=== PATIENT | female | born 1940 | race Caucasian/White ===

== ENCOUNTER 2017-11-11 17:02 | Inpatient (IN) | payer MEDICARE ==
[~2017-11-11] VITALS: Ht 149.9 cm; Wt 51.3 kg
[~2017-11-11 17:02] MED LIST: ALLOPURINOL 10100 M1 PO; CIPRO500 MG PO; COLACE100 MG PO; NORVASC10 MG PO; PROTONIX40 M1 PO; UNICOMPLEX M TA1 TA1 PO; VITAMIN B-12500 MCG PO
[2017-11-11 17:04] VITALS: BP 130/58
[2017-11-11] MEDS ORDERED: REMERON15 MG PO (17:12)
[2017-11-11] MEDS ORDERED: MIRALAX17 GM PO (17:13)
[2017-11-11] MEDS ORDERED: TYLENOL325 MG PO (17:13)
[2017-11-11 18:13] LABS: ABSOLUTE BASOPHILS 0.1 thou/uL (0.0-0.2); ABSOLUTE MONOCYTES 0.3 thou/uL (0.0-1.2); ABSOLUTE NEUTROPHILS 7.2 thou/uL (1.6-8.1); BASOPHILS 0.6 %; EOSINOPHILS 0.6 %; HEMATOCRIT 28.7 % (37.0-47.0); HEMOGLOBIN 9.5 gm/dL (12.0-15.0); LYMPHOCYTES 11.7 %; MCH 31.5 pg (26.0-34.0); MCHC 33.2 g/dL (28.0-37.0); MCV 94.7 fL (80.0-100.0); MONOCYTES 3.5 %; MPV 8.5 fl. (7.2-11.1); NUCLEATED RBCS 0 /100WBC; PLATELET COUNT* 487 thou/uL (150-400); POLYS 83.6 %; RBC 3.03 mil/uL (4.20-5.00); RDW-CV 14.2 % (10.5-14.5); WBC 8.6 thou/uL (4.0-11.0)
[2017-11-11 18:21] LABS: ANION GAP 12 mmol/L (7-16); BUN 24 mg/dL (7-18); CALCIUM 8.9 mg/dL (8.5-10.1); CHLORIDE 102 mmol/L (98-107); CO2 25 mmol/L (21-32); CREATININE 1.3 mg/dL (0.6-1.3); GLUCOSE 184 mg/dL (70-99); POTASSIUM 3.6 mmol/L (3.5-5.1); SODIUM 139 mmol/L (136-145)
[2017-11-11 18:32] LABS: ALBUMIN 2.6 g/dL (3.4-5.0); ALKALINE PHOSPHATASE 80 U/L (46-116); NT-PRO BRAIN NAT PEPTIDE 345 pg/mL (<300); SGOT 20 U/L (15-37); SGPT 21 U/L (30-65); TOTAL BILIRUBIN 0.2 mg/dL (<0.1-1.0); TOTAL PROTEIN 8.2 g/dL (6.4-8.2); TROPONIN-I LEVEL <0.06 ng/mL (<0.06)
[2017-11-11 19:19] LABS: URINE BILIRUBIN NEGATIVE (Negative); URINE BLOOD NEGATIVE (Negative); URINE CLARITY CLEAR; URINE COLOR YELLOW; URINE GLUCOSE-RANDOM NEGATIVE (Negative); URINE KETONES NEGATIVE (Negative); URINE LEUKOCYTES 1+ (Negative); URINE NITRITE POSITIVE (Negative); URINE PROTEIN 2+ (Negative); URINE UROBILINOGEN 0.2 E.U./dl (0.2-1.0)
[2017-11-11 20:04] LABS: SQUAMOUS 4-10 Moderate /LPF (0-3)
[2017-11-11 20:05] LABS: BACTERIA >30 Many /HPF (None Seen); URINE RBC None Seen /HPF (0-2)
[2017-11-11 20:06] LABS: CASTS None Seen /LPF (None Seen); CRYSTALS None Seen /LPF (None Seen); MUCUS None Seen strn/LPF (None Seen)
[2017-11-11 20:40] LABS: INFLUENZA A ANTIGEN None Detected (None Detect); INFLUENZA B ANTIGEN None Detected (None Detect)
--- NOTE | 2017-11-11 22:55 | NUR ---
UPON ARRIVAL TO ED, PATIENT WAS HOLLERING OUT BUT WAS UNABLE TO COMMUNICATE HER NEEDS. ONCE CHANGED INTO A GOWN AND BRIEF REMOVED, AND EXTRA BLANKETS APPLIED, PATIENT CALMED DOWN AND BEGAN RESTING WITH HER EYES CLOSED. TURNING Q2HR AND CHECKING ON HER SHE HAS BEEN RESTING AND HAD ONE SMALL SOFT BOWEL MOVEMENT. REPORT GIVEN TO ANASTASIYA
[2017-11-11 22:57] VITALS: BP 127/62
[2017-11-12 04:18] VITALS: BP 124/70
--- NOTE | 2017-11-12 06:36 | NUR ---
PT IS UNABLE TO BE TURNED. PT SCREAMS IN PAIN. PT WANTS TO BE LEFT ON HER RIGHT SIDE. PT IS STIFF AND CURRENLTY IN THE POSITION. PT IS ABLE TO ANSWER YES AND NO. PT HAS A HISTORY OF DEMENTIA
[2017-11-12 09:07] VITALS: BP 102/65
--- NOTE | 2017-11-12 11:47 | EKG ---
[place] [address] ELECTROCARDIOGRAM REPORT Name: TERESA BUCHANAN Room: [address] ADM IN [facility]#: [id number] Admission: 11/11/17 Attend Phys: Alfredo Saucedo MD Discharge: Date of : 38 Report #: [id number] THIS REPORT FOR: //name// [facility] ED Test Date: 2017-11-11 Test Time: 17:10:55 Pat Name: TERESA BUCHANAN Department: Room: [address] Gender: F Obstetrics Technician: UNKNOWN : 1940 Requested By: Elisa Gray Order Number: [id number] Lars MD: Adriano Morales Measurements Intervals [place] Rate: 91 P: 0 OR: 118 QRS: 46 QRSD: 87 T: 34 QT: 370 QTc: 456 Interpretive Statements Sinus rhythm Borderline short OR interval Artifact in lead(s) II,aVR,aVF,V1,V2,V6 Compared to ECG 02/11/2017 10:31:07 Atrial premature complex(es) no longer present Electronically Signed On 11-12-2017 11:46:48 WELT TREATER by Adriano Morales [email or web address] <ELECTRONICALLY SIGNED> By: Adriano Morales MD, FACC 11/12/17 1146 1710 1710 Adriano Morales MD, FAC /EPI
[2017-11-12 13:43] LABS: HEMOGLOBIN 8.3 gm/dL (12.0-15.0); NUCLEATED RBCS 0 /100WBC
[2017-11-12 13:46] LABS: HEMATOCRIT 24.8 % (37.0-47.0); MCH 31.5 pg (26.0-34.0); MCHC 33.5 g/dL (28.0-37.0); MCV 94.1 fL (80.0-100.0); MPV 7.8 fl. (7.2-11.1); RBC 2.63 mil/uL (4.20-5.00); WBC 7.7 thou/uL (4.0-11.0)
[2017-11-12 13:47] LABS: CALCIUM 8.4 mg/dL (8.5-10.1); PLATELET COUNT* 431 thou/uL (150-400); POTASSIUM 3.5 mmol/L (3.5-5.1)
[2017-11-12 14:20] LABS: ABSOLUTE EOSINOPHILS 0.1 thou/uL (0.0-0.7); ABSOLUTE LYMPHOCYTES 1.2 thou/uL (0.8-5.3); ABSOLUTE MONOCYTES 0.2 thou/uL (0.0-1.2); ABSOLUTE NEUTROPHILS 6.2 thou/uL (1.6-8.1); METAMYELOCYTES 1 %; PLATELET ESTIMATE INCREASED
[2017-11-12 14:21] LABS: ANISOCYTOSIS 1+
[2017-11-12 14:22] LABS: CLUMPED PLTS RARE; HYPOCHROMASIA 1+; LARGE PLATELETS FEW
--- NOTE | 2017-11-12 14:58 | NUR ---
UNABLE TO AROUSE PT. SHE IS SLEEPING SOUNDLY. NURSING SAID SHE HAS BEEN SLEEPY ALL DAY. CONTACTED FRIEND,QUINTEN, AT [phone]. SHE SAID PT.HAS BEEN LIKE THIS FOR ABOUT 2 WEEKS. 'SHE LIKES TO SLEEP' SHE ALSO FEELS SHE HAS ALOT OF BACK AND ARM PAIN. PT.HAS LIVED AT [facility] IN [place] FOR 8 MONTHS. DOES NOT AMBULATE. IS WC BOUND. LATELY SOMEONE HAS HAD TO FEED HER. SHE NEVER HAS A GOOD APPETITE. IS DEPENDENT ON CARES. QUINTEN SAID SHE IS HER DPOA. DOES NOT HAVE A COPY OF DPOA. NONE ON FILE IN MED.RECORDS. CM WILL CHECK WITH [facility] ON TUESDAY.
--- NOTE | 2017-11-12 18:10 | NUR ---
I ASSUMED CARE OF THE PATIENT AT 0700. SHE IS NOT WILLING TO HAVE CONVERSATION. HOURLY ROUNDING WAS COMPLETED AND PATIENT NEEDS WERE MET. PAIN WAS DENIED. BED IS IN THE LOW LOCKED POSITION AND CALL LIGHT IS IN REACH. PATIENT IS A FEEDER, BUT WILL BARELY EAT. SWALLOW EVALUATION WAS COMPLETED AND SHE PASSED. I BELIEVE HER RESPONSE TO PO MEDS AND MEALS ARE RELATED TO BEHAVIOR. SHE HAS HAD VISITIORS OFF AND ON DURING THE DAY. WE ARE TURNING HER EVERY TWO HOURS. BED RAILS ARE UP FOR SAFETY. THERE IS DEBATE OF WHETHER SHE SHOULD BE HAVING HOSPICE CONSULTED OR CONTINUE THERAPY BETWEEN THE [facility] AND THE FAMILY. SW WILL FOLLOW UP ON PAPERWORK FROM [facility] ON TUESDAY. WILL CONTINUE TO MONITOR.
[2017-11-12 20:00] VITALS: BP 117/47
[2017-11-13 04:07] LABS: ALBUMIN 2.1 g/dL (3.4-5.0); CALCIUM 8.6 mg/dL (8.5-10.1); CREATININE 0.9 mg/dL (0.6-1.3); POTASSIUM 3.3 mmol/L (3.5-5.1); TOTAL BILIRUBIN 0.2 mg/dL (<0.1-1.0); TOTAL PROTEIN 6.8 g/dL (6.4-8.2)
[2017-11-13 04:23] LABS: ABSOLUTE EOSINOPHILS 0.1 thou/uL (0.0-0.7); ABSOLUTE LYMPHOCYTES 1.2 thou/uL (0.8-5.3); ABSOLUTE MONOCYTES 0.4 thou/uL (0.0-1.2); ABSOLUTE NEUTROPHILS 6.3 thou/uL (1.6-8.1); BASOPHILS 0.5 %; HEMATOCRIT 24.8 % (37.0-47.0); HEMOGLOBIN 8.3 gm/dL (12.0-15.0); LYMPHOCYTES 14.5 %; MCH 31.6 pg (26.0-34.0); MCHC 33.4 g/dL (28.0-37.0); MCV 94.6 fL (80.0-100.0); MONOCYTES 4.8 %; MPV 8.2 fl. (7.2-11.1); NUCLEATED RBCS 0 /100WBC; PLATELET COUNT* 454 thou/uL (150-400); POLYS 79.2 %; RBC 2.62 mil/uL (4.20-5.00); RDW-CV 14.2 % (10.5-14.5)
--- NOTE | 2017-11-13 04:50 | NUR ---
THIS NURSE ASSUMED CARE OF PT 11/12/17 AT 1930, PT RESTS QUIETLY WITH EYES CLOSED, PT IS ARROUSABLE, PT ONLY RESPONDS TO QUESTIONS OCCASIONALLY WITH YES ANSWERS, PT STATES I DONT HAVE ANY PAIN ANYWHERE WHEN ASKED WHERE SHE HURTS, HOWEVER PT GRIMACES AND YELLS OUT WHEN TOUCHED OR TURNED, HEART RRR, NO EDEMA, LUNG SOUNDS CLEAR AND DIMINISHED AT BASES, ABD SOFT AND FLAT WITH POSITIVE BOWEL SOUNDS, MALAGON CATHETER INTACT TO DEPENDENT DRAINAGE WITH CLEAR YELLOW URINE, PT IS ABLE TO SWALLOW 1 PILL WITH APLESAUCE AND DRINK WATER FROM STRAW WITHOUT DIFFICULTY, IV TO LEFT AC REMAINS INTACT WITH FLUIDS DISCONTINUED, PT RESTING QUIETLY AT THIS TIME, BED IN LOWEST POSITION, CALL LIGHT WITHIN REACH, BED ALARM IS ON
[2017-11-13 08:05] VITALS: BP 122/58
[2017-11-13 16:28] VITALS: BP 138/56
--- NOTE | 2017-11-13 16:59 | NUR ---
ASSUMED CARE OF PATIENT AT 1630. PATIENT SLEEPING. NO APPARENT NEEDS AT THIS TIME. NURSING WILL CONTINUE TO MONITOR.
--- NOTE | 2017-11-13 18:12 | NUR ---
NO CHANGE IN PATIENT STATUS. REMAINS ASLEEP. RESPONDS TO PHYSICAL STIMULI BY YELLING. NO EVIDENCE OF NEEDS. NURSING WILL CONTINUE TO MONITOR.
[2017-11-13 20:29] VITALS: BP 145/72
[2017-11-14 04:17] LABS: ABSOLUTE BASOPHILS 0.1 thou/uL (0.0-0.2); ABSOLUTE EOSINOPHILS 0.1 thou/uL (0.0-0.7); ABSOLUTE MONOCYTES 0.2 thou/uL (0.0-1.2); ABSOLUTE NEUTROPHILS 5.3 thou/uL (1.6-8.1); BASOPHILS 2.1 %; EOSINOPHILS 0.8 %; HEMATOCRIT 24.8 % (37.0-47.0); HEMOGLOBIN 8.7 gm/dL (12.0-15.0); LYMPHOCYTES 14.5 %; MCH 31.6 pg (26.0-34.0); MCHC 35.2 g/dL (28.0-37.0); MCV 89.9 fL (80.0-100.0); MONOCYTES 3.4 %; MPV 7.3 fl. (7.2-11.1); NUCLEATED RBCS 0 /100WBC; PLATELET COUNT* 458 thou/uL (150-400); POLYS 79.2 %; RBC 2.76 mil/uL (4.20-5.00); RDW-CV 13.9 % (10.5-14.5); WBC 6.7 thou/uL (4.0-11.0)
[2017-11-14 04:30] LABS: CALCIUM 8.8 mg/dL (8.5-10.1); POTASSIUM 3.7 mmol/L (3.5-5.1)
--- NOTE | 2017-11-14 04:33 | NUR ---
PATIENT RESTING QUIETLY IN BED WITH EYES CLOSED ALL NIGHT. WILL RESPOND OCCASSIONALLY WITH YES ANSWERS RESTING QUIETLY IN BED ALL NIGHT WITH EYES CLOSED. WILL RESPOND OCCASSIONALLY WITH YES ANSWERS. DENIES PAIN OR NAUSEA WHEN ASKED BUT DOES MOAN WHEN MOVED. HAS FOLY CATHETER PATENT WITH CLEAR YELLOW. REPOSITIONED SEVERAL TIMES THROUGHOUT NIGHT. BED ALARM ON AND CALL LIGHT WITHIN REACH. DENIES PAIN OR NAUSEA WHEN ASKED BUT WILL YELL OUT WHEN MIVED
--- NOTE | 2017-11-14 08:19 | NUR ---
ORDER RECEIVED FOR "OT EVALUATION AND TREATMENT". COMPLETED CHART REVIEW. PER CASE MANAGEMENT, PT RESIDES AT [facility] IN [place]. PT IS NON-AMBULATORY AND DEPENDENT FOR ADL'S. PT NON APPROPRIATE FOR SKILLED OT SERVICES AT THIS TIME.
[2017-11-14 08:26] VITALS: BP 138/67
--- NOTE | 2017-11-14 11:52 | NUR ---
QUINTEN Silva, AT BEDSIDE. SHE WOULD LIKE TO SEE PT.COMFORTABLE. SHE THINKS PT.IS READY TO 'GO BE WITH HER MOM AND DADDY'. SHE SIGNED A DPOA AT 'S OFFICE 3 YRS AGO BUT HE IS NOW RETIRED AND HAVE NO WAY OF GETTING IT. SHE SAID SHE REALLY WOULD RATHER PT.'S BROTHER MAKE THE DECISIONS, BECAUSE SHE DOESN'T WNAT TO BE RESPONSIBLE. SHE SAID SHE THINKS BROTHER WANTS EVERYTHING DONE FOR HER. HE IS SUPPOSED TO BE IN TODAY.
[2017-11-14 15:31] VITALS: BP 113/48
--- NOTE | 2017-11-14 15:48 | NUR ---
PATIENTS BROTHER WOULD LIKE TO MEET WITH DR. BRO TOMORROW TO DISCUSS OPTIONS. NOTIFIED CASE MANAGEMENT WHO WILL HELP ARRANGE THE MEETING.
--- NOTE | 2017-11-14 16:25 | NUR ---
PATIENT SLEEPING ALL DAY. WILL ANSWER SOME QUESTIONS WITH THE WORD NO. REFUSED MEALS. REPOSITIONED EVERY [address] SKIN INTACT. HEELS ELEVATED ON PILLOW. VSS. PATIENTS FRIEND QUINTEN VISITED THIS AM AND PATIENTS BROTHER VISITED THIS AFTERNOON. THEY ARE UNABLE TO GET PATIENT TO EAT EITHER. FAMILY WOULD LIKE TO MEET WITH DR. BRO TOMORROW TO DISCUSS OPTIONS. BED ALARM SET. CALL LIGHT WITHIN REACH. WILL CONTINUE TO MONITOR.
--- NOTE | 2017-11-14 16:35 | NUR ---
SPOKE WITH ABOUT FAMILY MEETING. HE SAID WHENEVER BROTHER/FAMILY ARRIVES TOMORROW TO PAGE HIM AND HE WILL COME TO TALK WITH THEM. NOTIFIED BROTHER,RENITA AND AGRISCIENCE TEACHER,IVANNA,ON UNIT.
[2017-11-14 20:50] VITALS: BP 120/66
[2017-11-15 00:38] VITALS: BP 128/60
--- NOTE | 2017-11-15 04:53 | NUR ---
PATIENT SLEEPING ALL OF MY SHIFT EASY TO AROUSE, BUT QUICKLY FALLS GOES BACK TO SLEEP. TAKES MEDS CRUSHED IN APPLESAUCE, TAKES SEVERAL MINUTES TO GET PATIENT TO OPEN MOUTH THE TAKE MEDICATION. MALAGON TO DEPENDENT DRAINAGE. REPOSITONED EVERY TWO HOURS. SKIN INTACT. FREQUENT ROUNDS. NURSING WILL CONTINUE TO MONITOR.
[2017-11-15 08:15] VITALS: BP 118/62
--- NOTE | 2017-11-15 12:15 | NUR ---
PT.'S BROTHER,RENITA, HIS AND PT.'S S.O.HERE. HAD DISCUSSION WITH THEM ABOUT PLAN OF CARE-IF THEY WISH TO START HOSPICE CARE OR CONTINUE TREATING PT. IE:SENDING HER TO HOSPITAL EACH TIME SHE GETS DEHYDRATED /DECLINES IN MENTAL STATUS. AT THIS TIME THEY WISH TO CONTNUE TO TREATING PT.IS A LITTLE MORE ALERT AND WILL EAT PART OF A MEAL IF FED/DAY. THEY WILL TALK WITH AND G.FACILITY WHEN PT.RETURNS TO SEE IF HOSPICE IS SOMETHING THEY WANT TO DO. SAID PT.MAY BE READY FOR DISCHARGE IN 1-2 DAYS.
--- NOTE | 2017-11-15 16:41 | NUR ---
PATIENT REMAINS CONFUSED, SLEEPING ALL SHIFT. WILL AROUSE AND ANSWER SOME YES/NO QUESTIONS. ATE VERY SMALL AMOUNTS OF MEALS TODAY. IV SALINE LOCKED. IV ABX INFUSED THIS AM. REPOSTIONED EVERY [address] FAMILY MET WITH DR. BRO TO DISCUSS OPTIONS. SCD'S IN PLACE. TYLENOL SUPPOSITORY THIS AM FOR LOW GRADE FEVER. NO BM. MALAGON IN PLACE WITH HERMANN URINE. BED ALARM SET. WILL CONTINUE TO MONITOR.
[2017-11-15 20:10] VITALS: BP 140/71
[2017-11-16 04:37] LABS: HEMATOCRIT 27.2 % (37.0-47.0); HEMOGLOBIN 9.3 gm/dL (12.0-15.0); MCH 31.7 pg (26.0-34.0); MCV 93.2 fL (80.0-100.0); MPV 7.8 fl. (7.2-11.1); RBC 2.92 mil/uL (4.20-5.00); RDW-CV 14.2 % (10.5-14.5); WBC 6.3 thou/uL (4.0-11.0)
[2017-11-16 04:38] VITALS: BP 118/66
--- NOTE | 2017-11-16 04:56 | NUR ---
PATIENT REMAINS CONFUSED AND DROWSY. VITALS STABLE. RA. AFEBRILE DURING MY SHIFT. MALAGON TO DEPENDENT DRAINAGE. REPOSITIONED EVERY TWO HOURS. TAKES PILLS CRUSHED IN APPLESAUCE. NO BOWEL MOVEMENT DURING MY SHIFT. FREQUENT ROUNDS. BED ALARM IN USE. NURSING WILL CONTINUE TO MONITOR.
--- NOTE | 2017-11-16 07:27 | EEG ---
[address] [address] EEG STUDY REPORT Name: TERESA BUCHANAN Room: [address] IN .R.#: [id number] Admission: 11/11/17 Attend Phys: Alfredo Saucedo MD Discharge: Date of : 38 Report #: [id number] THIS REPORT FOR: //name// CC: Alfredo Sol DATE OF SERVICE: 11/13/2017 This patient is being evaluated for altered mental status. EEG was done by placing the electrodes by standard 10/20 system of electrode placement. Both referential and sequential montages were used for recording. Background activity in this patient's EEG is about 6-7 Hz and 30 microvolt. Photic stimulation was unremarkable. It is not possible to tell when the patient is awake and sleep. Throughout the record, no active epileptiform activity was noticed. IMPRESSION: This is an abnormal EEG. It is a nonspecific finding which can occur with encephalopathy, effect of psychotropic medication, dementia, etc. No active epileptiform activity was noticed during this record. Thank you very much for this referral. <ELECTRONICALLY SIGNED> By: Bhaskar Brown MD 11/16/17 0727 0623 [id number] Brown MD /nt
--- NOTE | 2017-11-16 07:27 | CON ---
[address] [address] CONSULTATION Name: TERESA BUCHANAN Room: [address] IN .R.#: [id number] Admission: 11/11/17 Attend Phys: Alfredo Saucedo MD Discharge: Date of : 38 Report #: [id number] THIS REPORT FOR: //name// CC: Alfredo Sol DATE OF SERVICE: 11/13/2017 HISTORY OF PRESENT ILLNESS: This is a 77-year-old female patient who is unable to provide any history at all. I do not have any family members and in the chart I can find only the number for a friend. The records indicate that she has not been doing well for 2 weeks. She has not been eating and drinking well and was apparently more confused than normal. To me she will not talk. REVIEW OF SYSTEMS: From the records. She has a history of Alzheimer disease. She has altered mental status. She has anemia. She has anorexia. She had large bowel movements. This is what I can get from the record. I did carry out 14-point review of systems, the best I can carry out and this is what I can get. She is on some psychiatric medications, so I suspect she has some psychiatric problem. PAST MEDICAL HISTORY: Positive for dementia. FAMILY HISTORY: Unavailable. SOCIAL HISTORY: She lives in a shelter. PHYSICAL EXAMINATION: Indicate she will not talk to me. She will not say a single word. She will not follow any commands, making the examination almost impossible. I tried to do cranial nerve examination 2-12 but she will not keep her eyes shut and will not cooperate. She has no meningeal sign. Cardiac examination hemodynamic stability. She has no edema, cyanosis or jaundice. She is moderately built individual. I do not know whether she can hear or see well. Blood pressure is 122/58, respiration is 20, pulse is 79, temperature is 98.4. LABORATORY DATA: White count is normal at 8.0, potassium is 3.3. CT scan is unremarkable. IMPRESSION: This patient most likely has dementia. She has some superimposed encephalopathy. I do not know how aggressive to be in this patient, but will suggest conservative treatment. RECOMMENDATIONS: 1. She already had a CT scan of the head. 2. [place] [address] CONSULTATION Name: TERESA BUCHANAN Room: [address] IN [facility]#: [id number] Admission: 11/11/17 Attend Phys: Alfredo Saucedo MD Discharge: Date of : 38 Report #: [id number] 3. She had a TSH recently and vitamin B12 recently. Vitamin B12 was low. I will just go ahead and repeat both. Until the family wants otherwise, I will suggest very conservative treatment. Thank you very much for this referral and if you have any question, please feel free to contact me. <ELECTRONICALLY SIGNED> By: Bhaskar Brown MD 11/16/17 0727 1023 2105Bhaskar Brown MD /nt
[2017-11-16 08:34] VITALS: BP 127/63
[2017-11-16 14:29] VITALS: BP 127/63
--- NOTE | 2017-11-16 15:54 | NUR ---
PT.HAS DISCHARGE ORDERS TO RETURN TO [facility]. SHE WILL BE SKILLED. NOTIFIED [facility]. FAXED HER ORDERS, H&P,CONSULTS AND TODAY'S PROGRESS NOTE. WILL GO BY AMBULANCE. ARRANGED AMBULANCE FOR 1614. NOTIFIED SAlissaEFRAIN ON PHONE AND BROTHER,RENITA ON PHONE. HAD TO LEAVE FOR RENITA. CHART COPIED TO GO WITH PT. NURSING TO CALL REPORT.
--- NOTE | 2017-11-16 16:31 | NUR ---
ASSUMED CARE OF PATIENT AFTER MORNING REPORT. ALERT AND ORIENTED X1-2. ASSESSMENT COMPLETED AND CHARTED. VSS ON ROOM AIR. PATIENT WAS MOSTLY NON VERBAL TODAY BUT COOPERATIVE. PATIENT REFUSED TO EAT BUT VERY FEW SMALL BITES OF HER MEALS. CRUSHED HER MEDICATIONS AND MIXED THEM WITH APPLESAUCE, SHE WOULD ONLY TAKE A FEW VERY SMALL BITES, MAYBE 1/4 OF MORNING MEDICATION WAS ADMINISTERED DUE TO THIS. PATIENT DISCHARGED TO SKILLED FACILITY AT 1430 AND WAS TRANSPORTED VIA AMBULANCE. ALL PERSONAL BELONGINGS LEFT WITH PATIENT. DISCHARGE INSTRUCTIONNS SENT WITH TRANSPORTERS TO FACILITY.
== END 2017-11-16 16:30 | DRG 871 ==
LOC: M.ERS 17:02 → EDBD 17:02 → M.TBA-ER 19:40 → M.ORTHSURG 19:40 → EDBD 11-16 16:30
PROVIDERS: Internal Medicine; Physician Assistant; ADMIT Internal Medicine
DX: A41.9 Sepsis, unspecified organism (principal); G93.40 Encephalopathy, unspecified; N39.0 Urinary tract infection, site not specified; E44.0 Moderate protein-calorie malnutrition; G30.9 Alzheimer's disease, unspecified; F02.80 Dementia in other diseases classified elsewhere, unspecified severity, without behavioral disturbance, psychotic disturbance, mood disturbance, and anxiety; I10 Essential (primary) hypertension; K21.9 Gastro-esophageal reflux disease without esophagitis; M10.9 Gout, unspecified; E86.0 Dehydration; Z68.22 Body mass index [BMI] 22.0-22.9, adult; Z98.42 Cataract extraction status, left eye; Z98.41 Cataract extraction status, right eye; Z90.49 Acquired absence of other specified parts of digestive tract; Z79.899 Other long term (current) drug therapy

== ENCOUNTER 2018-07-22 10:15 | Inpatient (IN) | payer MEDICARE ==
[~2018-07-22] VITALS: Ht 152.4 cm; Wt 50.8 kg
[2018-07-22] VITALS (9 sets, daily range): BP systolic 102–131; BP diastolic 40–73
--- NOTE | ~2018-07-22 | PROC ---
[address] [address] PROCEDURE REPORT Name: TERESA BUCHANAN Room: [address] IN .R.#: [id number] Admission: 07/22/18 Attend Phys: Matteo Luna MD Discharge: 07/26/18 Date of : [birth year] Report #: [id number] THIS REPORT FOR: //name// For GI report, please see the Provation report in Perceptive 7 content. By: 1017Medical Records Staff KEVIN /JULIANA
[~2018-07-22 10:15] MED LIST changes: +MIRALAX17 GM PO; +REMERON15 MG PO; +TYLENOL325 MG PO
[2018-07-22 10:30] LABS: HEMOGLOBIN 9.9 gm/dL (12.0-15.0); MCH 31.9 pg (26.0-34.0); MCV 96.8 fL (80.0-100.0); MPV 8.4 fl. (7.2-11.1); NUCLEATED RBCS 0 /100WBC; PLATELET COUNT* 320 thou/uL (150-400); RDW-CV 13.6 % (10.5-14.5)
[2018-07-22] MEDS ORDERED: ONDANSETRON HCL4 M2 PO (10:31)
[2018-07-22] MEDS ORDERED: SENNA8.6 MG PO (10:33)
[2018-07-22 10:34] LABS: ANION GAP 3 mmol/L (7-16); BUN 41 mg/dL (7-18); CALCIUM 8.8 mg/dL (8.5-10.1); CHLORIDE 104 mmol/L (98-107); CO2 31 mmol/L (21-32); CREATININE 1.2 mg/dL (0.6-1.3); GLUCOSE 274 mg/dL (70-99); SODIUM 138 mmol/L (136-145)
[2018-07-22 10:41] LABS: ALBUMIN 3.4 g/dL (3.4-5.0); ALKALINE PHOSPHATASE 80 U/L (46-116); LIPASE 99 U/L (73-393); SGOT 15 U/L (15-37); SGPT 18 U/L (30-65); TOTAL BILIRUBIN 0.3 mg/dL (<0.1-1.0); TOTAL PROTEIN 7.8 g/dL (6.4-8.2); TROPONIN-I LEVEL <0.06 ng/mL (<0.06)
[2018-07-22 11:19] LABS: ABSOLUTE LYMPHOCYTES 0.8 thou/uL (0.8-5.3); ABSOLUTE MONOCYTES 0.6 thou/uL (0.0-1.2); ABSOLUTE NEUTROPHILS 13.7 thou/uL (1.6-8.1)
[2018-07-22 11:21] LABS: PLATELET ESTIMATE ADEQUATE
[2018-07-22 15:55] LABS: HEMATOCRIT 25.8 % (37.0-47.0); HEMOGLOBIN 8.6 gm/dL (12.0-15.0); MCH 32.4 pg (26.0-34.0); MCHC 33.5 g/dL (28.0-37.0); MCV 96.8 fL (80.0-100.0); MPV 7.8 fl. (7.2-11.1); RBC 2.66 mil/uL (4.20-5.00); RDW-CV 13.7 % (10.5-14.5); WBC 12.9 thou/uL (4.0-11.0)
[2018-07-22 17:53] LABS: URINE BILIRUBIN NEGATIVE (Negative); URINE BLOOD 2+ (Negative); URINE CLARITY CLOUDY; URINE COLOR YELLOW; URINE GLUCOSE-RANDOM 1+ (Negative); URINE KETONES NEGATIVE (Negative); URINE PROTEIN 1+ (Negative); URINE SPECIFIC GRAVITY 1.015 (1.005-1.030); URINE UROBILINOGEN 0.2 E.U./dl (0.2-1.0)
[2018-07-22 17:54] LABS: URINE LEUKOCYTES-REFLEX 3+ (Negative); URINE NITRITE-REFLEX POSITIVE (Negative)
[2018-07-22 17:58] LABS: BACTERIA-REFLEX >30 Many /HPF (None Seen); CASTS None Seen /LPF (None Seen); CRYSTALS None Seen /LPF (None Seen); MUCUS 0-3 Light strn/LPF (None Seen); SQUAMOUS 0-3 Few /LPF (0-3); URINE RBC >20 Many /HPF (0-2); URINE WBC-REFLEX >25 Many /HPF (0-5); WBC CLUMPS Moderate (None Seen)
[2018-07-22 20:18] LABS: MCH 32.4 pg (26.0-34.0); MCHC 33.3 g/dL (28.0-37.0); MCV 97.5 fL (80.0-100.0); MPV 7.7 fl. (7.2-11.1); RBC 2.47 mil/uL (4.20-5.00); WBC 11.6 thou/uL (4.0-11.0)
[2018-07-22 23:45] LABS: HEMATOCRIT 24.3 % (37.0-47.0); MCH 32.3 pg (26.0-34.0); MCHC 33.1 g/dL (28.0-37.0); MCV 97.7 fL (80.0-100.0); MPV 7.9 fl. (7.2-11.1); RBC 2.48 mil/uL (4.20-5.00); RDW-CV 13.6 % (10.5-14.5); WBC 11.3 thou/uL (4.0-11.0)
[2018-07-23] VITALS (23 sets, daily range): BP systolic 97–184; BP diastolic 19–91
[2018-07-23 02:08] LABS: GLYCOHEMOGLOBIN (HGB A1C) 6.8 % (4.8-5.6)
[2018-07-23 04:47] LABS: HEMATOCRIT 31.4 % (37.0-47.0); MCH 30.8 pg (26.0-34.0); MCV 93.6 fL (80.0-100.0); MPV 8.3 fl. (7.2-11.1); RBC 3.35 mil/uL (4.20-5.00); RDW-CV 16.4 % (10.5-14.5); WBC 12.4 thou/uL (4.0-11.0)
[2018-07-23 04:55] LABS: HEMOGLOBIN 10.3 gm/dL (12.0-15.0)
[2018-07-23 05:07] LABS: ALBUMIN 3.2 g/dL (3.4-5.0); ALKALINE PHOSPHATASE 69 U/L (46-116); ANION GAP 7 mmol/L (7-16); BUN 24 mg/dL (7-18); CALCIUM 8.3 mg/dL (8.5-10.1); CHLORIDE 108 mmol/L (98-107); CO2 26 mmol/L (21-32); GLUCOSE 213 mg/dL (70-99); MAGNESIUM 1.9 mg/dL (1.8-2.4); POTASSIUM 3.2 mmol/L (3.5-5.1); SGOT 15 U/L (15-37); SGPT 15 U/L (30-65); SODIUM 141 mmol/L (136-145); TOTAL BILIRUBIN 0.9 mg/dL (<0.1-1.0); TOTAL PROTEIN 7.3 g/dL (6.4-8.2); TROPONIN-I LEVEL <0.06 ng/mL (<0.06)
--- NOTE | 2018-07-23 08:44 | CON ---
[address] [address] CONSULTATION Name: TERESA BUCHANAN Room: [address] IN ..#: [id number] Admission: 07/22/18 Attend Phys: Matteo Luna MD Discharge: Date of : [birth year] Report #: [id number] THIS REPORT FOR: //name// CC: Matteo Sol DATE OF SERVICE: 07/23/2018 TYPE OF REPORT: Infectious disease consultation REASON FOR CONSULTATION: Possible aspiration pneumonia. HISTORY OF PRESENT ILLNESS: The patient is an 81-year-old woman admitted through the Emergency Room with history of a gastrointestinal bleeding, emesis of bloody material, and possibility of aspiration pneumonia is entertained. The patient appears to be demented. She tells me she is in her 50s or thereabouts and complaining of feeling cold. Other than that, she is unable to give significant information. Consequently, all information gathered from review of records. PAST MEDICAL HISTORY: 1. Dementia. 2. Anemia of chronic disease. 3. Anorexia. 4. Gout. 5. Hypertension. 6. Gastroesophageal reflux disease. 7. Colonic diverticula. 8. Hydroureter. DRUG ALLERGIES: Not listed. MEDICATIONS: The patient is on treatment with vancomycin 500 mg IV twice daily, Zosyn 3.375 grams IV every 8 hours, and Levaquin 250 mg IV daily. She is also on multivitamins with minerals and cyanocobalamin. She is getting pantoprazole 40 mg intravenously. SOCIAL HISTORY: Unable to obtain, see old records and H and P. FAMILY HISTORY: Unable to obtain, see H and P, old records. REVIEW OF SYSTEMS: Unable to obtain. PHYSICAL EXAMINATION: GENERAL: Elderly woman, not toxic looking, complaining of feeling cold[place] [address] CONSULTATION Name: TERESA BUCHANAN Room: [address]#: [id number] Admission: 07/22/18 Attend Phys: Matteo Luna MD Discharge: Date of : [birth year] Report #: [id number] VITAL SIGNS: Pulse 102, respirations 18, BP 121/57, and O2 saturation 98% on room air. HEENT: Pupils reactive. Mouth, missing teeth. No thrush. NECK: Supple. LUNGS: Clear to auscultation. HEART: S1 and S2. No gallop or murmur. ABDOMEN: Soft. No masses or megaly. PELVIC AND RECTAL: Deferred. EXTREMITIES: No clubbing or cyanosis. NEUROLOGICAL: Grossly within normal limits. LABORATORY DATA: Sodium 138, potassium 4, BUN 41, creatinine 1.2 and glucose 274. Hemoglobin A1c 6.8% and average sugars 148. WBC 15,000, hemoglobin 9.9 g/dL and platelets 270,000. Urinalysis revealed positive nitrite, microscopic hematuria, pyuria, bacteriuria. MICROBIOLOGY DATA: Urine culture and blood cultures pending at the time of this dictation. RADIOLOGY EVALUATION: Chest x-ray revealed no acute infiltrates. CT scan of abdomen and pelvis revealed small pleural effusion, mild right hydronephrosis, mild dilatation of proximal small bowel, gallstone, contracted gallbladder, sigmoid diverticula, and no inflammation. ASSESSMENT: 1. Question yrn question yrn aspiration pneumonia. 2. Abnormal urinalysis, question asymptomatic bacteriuria versus urinary tract infection. 3. Gastrointestinal bleeding. 4. Azotemia. 5. Dementia. SUGGESTIONS: Recommend for time being, while awaiting culture results, continue coverage with Zosyn, vancomycin and Levaquin. Thank you for requesting our suggestions in the care of your patient. <ELECTRONICALLY SIGNED> By: Rosas Sheffield MD 07/23/18 0844 0409 0522Rosas Sheffield MD /nt
[2018-07-23 12:19] LABS: APTT 25.4 Seconds (25.0-31.3); PROTIME 10.2 Seconds (9.20-11.50)
--- NOTE | 2018-07-23 13:55 | EKG ---
[place] [address] ELECTROCARDIOGRAM REPORT Name: CHANELTERESA Room: [address] ADM IN .R.#: [id number] Admission: 07/22/18 Attend Phys: Matteo Luna MD Discharge: Date of : [birth year] Report #: [id number] THIS REPORT FOR: //name// [facility] ED Test Date: 2018-07-22 Test Time: 10:27:19 Pat Name: TERESA BUCHANAN Department: Room: [facility] Gender: F Bridge Crew Member: MS : 1937-03-17 Requested By: Zheng Farrar Order Number: [id number] MD: Lazarus Medina Measurements Intervals [place] Rate: 103 P: 76 AR: 164 QRS: 40 QRSD: 62 T: 5 QT: 407 QTc: 533 Interpretive Statements Sinus tachycardia Borderline T abnormalities, lateral leads Prolonged QT interval Baseline wander in lead(s) I,II,aVR,aVF,V3,V5 Compared to ECG 11/11/2017 17:10:55 T-wave abnormality now present Prolonged QT interval now present Sinus rhythm no longer present Electronically Signed On 07-23-2018 13:55:28 CDT by Lazarus Medina [email or web address] <ELECTRONICALLY SIGNED> By: Susannah Medina MD, [facility] 07/23/18 1355 1027 1027 Susannah Medina MD, [facility] /EPI
[2018-07-24 00:37] VITALS: BP 137/85
[2018-07-24 04:00] VITALS: BP 157/70
[2018-07-24 05:08] LABS: HEMATOCRIT 31.3 % (37.0-47.0); HEMOGLOBIN 10.5 gm/dL (12.0-15.0); MCH 31.3 pg (26.0-34.0); MCHC 33.7 g/dL (28.0-37.0); MCV 92.8 fL (80.0-100.0); MPV 8.5 fl. (7.2-11.1); RBC 3.37 mil/uL (4.20-5.00); RDW-CV 16.6 % (10.5-14.5); WBC 9.5 thou/uL (4.0-11.0)
[2018-07-24 05:30] LABS: CALCIUM 8.9 mg/dL (8.5-10.1); CREATININE 1.1 mg/dL (0.6-1.3); MAGNESIUM 1.8 mg/dL (1.8-2.4); POTASSIUM 4.1 mmol/L (3.5-5.1); TOTAL BILIRUBIN 1.2 mg/dL (<0.1-1.0); TOTAL PROTEIN 6.4 g/dL (6.4-8.2)
[2018-07-24 08:00] VITALS: BP 159/69
[2018-07-24 12:00] VITALS: BP 132/63
[2018-07-24 14:00] LABS: BE -1.6 mmol/L (-2 to +3); HCO3 22.4 mmol/L (22.0-26.0); PCO2 34.7 mmHg (35.0-45.0); PO2 91.8 mmHg (75.0-100.0); pH 7.427 (7.340-7.450)
[2018-07-24 16:00] VITALS: BP 122/71
[2018-07-25] VITALS: BP 136/64
[2018-07-25 05:26] LABS: HEMOGLOBIN 10.7 gm/dL (12.0-15.0); MCH 31.3 pg (26.0-34.0); MCHC 33.3 g/dL (28.0-37.0); MPV 8.6 fl. (7.2-11.1); RBC 3.4 mil/uL (4.20-5.00); RDW-CV 16.2 % (10.5-14.5); WBC 6.7 thou/uL (4.0-11.0)
[2018-07-25 07:48] VITALS: BP 148/64
[2018-07-25 15:46] VITALS: BP 141/66
--- NOTE | 2018-07-25 18:07 | PATH ---
[address] [address] PATHOLOGY RPT PROCEDURE Name: CHANELTERESA Room: [address] IN .R.#: [id number] Admission: 07/22/18 Date of : [birth year] Discharge: Report #: [id number] Path Case #: [id number] [facility] Accession Number: [id number] . 01 Material submitted: . PREPYLORIC BIOPSY . 01 Clinical history: . None provided . 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 (DARELL/db; 07/25/18) LBQ/07/25/2018 . 02 Comment: Special stain: H. pylori immuno . 02 Electronically signed: . Fidencio Lim MD, Pathologist NPI- [id number] . 01 Gross description: . Received in formalin labeled "Teresa Buchanan, prepyloric biopsy evaluate H. pylori suspect intestinal metaplasia," is a single segment of lyman soft tissue measuring 0.4 cm in maximum dimension. The specimen is entirely submitted in cassette A1. (TSD; 07/24/2018) TOB/TOB . 02 Pathologist provided ICD-10: K29.50 . 02 CPT . 107919, M66310 Specimen Comment: A courtesy copy of this report has been sent to Specimen Comment: [phone]. Specimen Comment: Report sent to Performed at: [address] [facility] [address], [place], [place] [id number] MD Sterling Burrell MD Phone: [phone] Performed at: [address], [place], [place] [id number] [place] [address] PATHOLOGY RPT PROCEDURE Name: TERESA BUCHANAN Room: [address] IN [facility].#: [id number] Admission: 07/22/18 Date of : [birth year] Discharge: Report #: [id number] Path Case #: [id number] MD Fidencio Lim MD Phone: [phone]
[2018-07-25 22:59] VITALS: BP 146/70
[2018-07-26 05:15] LABS: MAGNESIUM 1.9 mg/dL (1.8-2.4); POTASSIUM 3.6 mmol/L (3.5-5.1)
[2018-07-26 10:04] VITALS: BP 125/56
[2018-07-26 11:29] VITALS: BP 125/56
[2018-07-26 11:36] VITALS: BP 125/56
[2018-07-26] MEDS ORDERED: CEFUROXIME500 MG PO (12:37)
[2018-07-26 14:47] VITALS: BP 125/56
--- NOTE | 2018-07-27 14:44 | CON ---
[address] [address] CONSULTATION Name: TERESA BUCHANAN Room: [address] IN M.R.#: [id number] Admission: 07/22/18 Attend Phys: Matteo Luna MD Discharge: 07/26/18 Date of : [birth year] Report #: [id number] THIS REPORT FOR: //name// CC: Matteo Sol DATE OF SERVICE: 07/22/2018 REFERRING PHYSICIAN: Dr. Luna. REASON FOR CONSULTATION: Coffee-ground emesis. IMPRESSION: 1. Coffee-ground emesis of uncertain etiology and significance. 2. Anemia of chronic disease, which appears to be stable. 3. Dementia with associated ____. RECOMMENDATIONS: 1. We will proceed with upper endoscopy tomorrow. I was able to talk with her best friend, durable power of assistant county attorney, Hue Sam, over the phone and discuss the need for her to undergo an endoscopic evaluation. She is agreeable to the same. 2. We will make further recommendations after endoscopy that will be done tomorrow. HISTORY OF PRESENT ILLNESS: The patient is an 81-year-old white resident of [facility] in [place], [place] who was transferred to [place] for evaluation of coffee-ground emesis. The patient did not give any history whatsoever. Most of the history obtained from the ER visit and history and physical. The patient apparently complained to her friend of some abdominal pain and then started having problem with nausea, vomiting and coffee-ground emesis. She has no prior history of any problems related to her upper or lower GI tract other than the fact that she has problem with dementia, poor oral intake and chronic constipation, which she is on medications for the same. She was seen through the Emergency Room and admitted to hospital for further evaluation and treatment. ALLERGIES: None. MEDICATIONS: Include allopurinol, Norvasc, vitamin B12, multivitamin with iron, pantoprazole, mirtazapine, Tylenol, ondansetron and senna for constipation. PAST MEDICAL AND SURGICAL HISTORY: Remarkable for progressive dementia with associated anorexia, poor oral intake, chronic constipation, she has B12 deficiency, hypertension and reflux. She has [place] [address] CONSULTATION Name: TERESA BUCHANAN Room: [address]#: [id number] Admission: 07/22/18 Attend Phys: Matteo Luna MD Discharge: 07/26/18 Date of : [birth year] Report #: [id number] am aware of. SOCIAL HISTORY: The patient does not smoke or drink. FAMILY HISTORY: Not known. PHYSICAL EXAMINATION: GENERAL: Revealed an 81-year-old white female who is very confused. CARDIOPULMONARY: Revealed a regular rate and rhythm. LUNGS: Clear. ABDOMEN: Soft and not tender. No rebound or guarding noted. LABORATORY DATA: From admission revealed a white count of 15.0, hemoglobin 9.9, platelet count 320,000, MCV is 96.8 and RDW 13.6. Her sodium 138, potassium 4.0, chloride 104, bicarbonate is 31, BUN 41, creatinine 1.2 with an elevated BUN to creatinine ratio. Total bilirubin 0.3, alkaline phosphatase is 80, AST 15, ALT is 18 and albumin is 3.4. CT scan of the abdomen and pelvis without any contrast revealed a large amount of stool within the rectum with fecal impaction being notable. There is also appears some wall thickening in the sigmoid colon with numerous diverticula. The liver is contracted with large gallstone noted within the gallbladder measuring 16 x 15 mm. There is some mild right hydronephrosis and proximal hydroureter without any perinephric stranding. DISCUSSION: At the present time, the patient does not have any overt bleeding and as such, she is stable to wait until tomorrow for endoscopic evaluation. We will proceed with upper endoscopy and fecal disimpaction while she is back there under sedation and make further recommendations thereafter. I have discussed the plans with the patient's durable power of assistant county attorney and she is agreeable for me to proceed. <ELECTRONICALLY SIGNED> By: Marty Ng DO 07/27/18 1444 1724 0621Marty Ng DO /nt
== END 2018-07-26 14:45 | DRG 871 ==
LOC: EDBD 10:15 → M.ERS 10:15 → M.2W 11:05 → M.TBA-ER 11:05 → M.ICU 14:07 → M.2W 07-23 18:38 → M.3W 07-25 16:35
PROVIDERS: Emergency Medicine Emergency Medical Services; Family Medicine; Internal Medicine
PROC: 30233N1 Transfusion of Nonautologous Red Blood Cells into Peripheral Vein, Percutaneous Approach (ICD-10-PCS; principal; 2018-07-23)
PROC: 0DB78ZX Excision of Stomach, Pylorus, Via Natural or Artificial Opening Endoscopic, Diagnostic (ICD-10-PCS; 2018-07-23)
DX: A41.9 Sepsis, unspecified organism (principal); G92 Toxic encephalopathy; N39.0 Urinary tract infection, site not specified; F03.91 Unspecified dementia, unspecified severity, with behavioral disturbance; I47.1 Supraventricular tachycardia; N13.30 Unspecified hydronephrosis; K21.0 Gastro-esophageal reflux disease with esophagitis; I10 Essential (primary) hypertension; R73.9 Hyperglycemia, unspecified; E87.6 Hypokalemia; K56.41 Fecal impaction; K44.9 Diaphragmatic hernia without obstruction or gangrene; K22.8 Other specified diseases of esophagus; D63.8 Anemia in other chronic diseases classified elsewhere; M10.9 Gout, unspecified; G47.00 Insomnia, unspecified; B96.20 Unspecified Escherichia coli [E. coli] as the cause of diseases classified elsewhere; K57.30 Diverticulosis of large intestine without perforation or abscess without bleeding; K25.9 Gastric ulcer, unspecified as acute or chronic, without hemorrhage or perforation; Z53.29 Procedure and treatment not carried out because of patient's decision for other reasons; Z79.899 Other long term (current) drug therapy; Z82.49 Family history of ischemic heart disease and other diseases of the circulatory system; Z90.49 Acquired absence of other specified parts of digestive tract

== ENCOUNTER 2019-10-02 12:07 | Inpatient (IN) | payer MEDICARE, MEDICAID ==
[~2019-10-02] VITALS: Ht 152.4 cm; Wt 49.9 kg
[~2019-10-02 12:07] MED LIST changes: +CEFUROXIME500 MG PO; +ONDANSETRON HCL4 M2 PO; +SENNA8.6 MG PO
[2019-10-02 12:08] VITALS: BP 148/70
[2019-10-02 12:46] LABS: HEMATOCRIT 34.5 % (37.0-47.0); MCH 31.6 pg (26.0-34.0); MCHC 31.9 g/dL (28.0-37.0); MCV 99.2 fL (80.0-100.0); MPV 10.5 fl. (7.2-11.1); NUCLEATED RBCS 0 /100WBC; PLATELET COUNT* 278 thou/uL (150-400); RBC 3.48 mil/uL (4.20-5.00); WBC 11.2 thou/uL (4.0-11.0)
[2019-10-02 13:08] LABS: CALCIUM 8.9 mg/dL (8.5-10.1); CREATININE 1.5 mg/dL (0.6-1.3); POTASSIUM 3.7 mmol/L (3.5-5.1)
[2019-10-02 13:11] LABS: ALBUMIN 3.3 g/dL (3.4-5.0); TOTAL BILIRUBIN 0.4 mg/dL (<0.1-1.0); TOTAL PROTEIN 7.9 g/dL (6.4-8.2)
[2019-10-02 13:29] LABS: ABSOLUTE EOSINOPHILS 0.1 thou/uL (0.0-0.7); ABSOLUTE LYMPHOCYTES 0.4 thou/uL (0.8-5.3); ABSOLUTE MONOCYTES 0.7 thou/uL (0.0-1.2); ANISOCYTOSIS 1+; PLATELET ESTIMATE ADEQUATE; POIKILOCYTOSIS 1+
[2019-10-02 14:07] LABS: APTT 26.2 Seconds (25.0-31.3)
[2019-10-02 14:59] VITALS: BP 141/68
[2019-10-02 15:18] LABS: URINE BILIRUBIN NEGATIVE (Negative); URINE BLOOD TRACE (Negative); URINE CLARITY CLEAR; URINE COLOR YELLOW; URINE GLUCOSE-RANDOM 2+ (Negative); URINE KETONES NEGATIVE (Negative); URINE LEUKOCYTES-REFLEX NEGATIVE (Negative); URINE PROTEIN NEGATIVE (Negative); URINE UROBILINOGEN 0.2 E.U./dl (0.2-1.0)
[2019-10-02 15:20] LABS: URINE NITRITE-REFLEX POSITIVE (Negative)
[2019-10-02 15:30] LABS: BACTERIA-REFLEX >30 Many /HPF (None Seen); MUCUS None Seen strn/LPF (None Seen); SQUAMOUS 4-10 Moderate /LPF (0-3); URINE RBC 0-2 Rare /HPF (0-2); URINE WBC-REFLEX 0-5 Rare /HPF (0-5)
[2019-10-02 15:31] LABS: CASTS None Seen /LPF (None Seen); CRYSTALS None Seen /LPF (None Seen)
[2019-10-02 16:00] VITALS: BP 150/80
--- NOTE | 2019-10-02 16:57 | EKG ---
[place] [address] ELECTROCARDIOGRAM REPORT Name: TERESA BUCHANAN Room: [address] ADM IN ..#: [id number] Admission: 10/02/19 Attend Phys: Margie Roberts Discharge: Date of : 36 Report #: [id number] THIS REPORT FOR: //name// [facility] ED Test Date: 2019-10-02 Test Time: 12:35:21 Pat Name: TERESA BUCHANAN Department: Room: [facility] Gender: F Field Clinical Engineer: ANABELA : 1940 Requested By: Selvin Hilliard Order Number: [id number] MD: George Moore Measurements Intervals Thompson Rate: 87 P: 75 [place]: 128 QRS: 54 QRSD: 81 T: 27 QT: 366 QTc: 441 Interpretive Statements Sinus rhythm Abnormal R-wave progression, early transition Baseline wander in lead(s) V6 Compared to ECG 07/22/2018 10:27:19 Sinus tachycardia no longer present T-wave abnormality no longer present Prolonged QT interval no longer present Electronically Signed On 10-02-2019 16:56:48 PAPER FEEDER by George Moore [email or web address] <ELECTRONICALLY SIGNED> By: George Moore MD, FACC 10/02/19 1656 1235 1235 George Moore MD, FACC /EPI
--- NOTE | 2019-10-02 18:53 | NUR ---
pt drank apple juice, some water , and some orange jello. gi consulted as ordered.
[2019-10-02 20:49] VITALS: BP 122/66
[2019-10-02 21:37] LABS: ABSOLUTE BASOPHILS 0.1 thou/uL (0.0-0.2); ABSOLUTE MONOCYTES 0.5 thou/uL (0.0-1.2); ABSOLUTE NEUTROPHILS 9.4 thou/uL (1.6-8.1); BASOPHILS 0.6 %; EOSINOPHILS 0.3 %; HEMOGLOBIN 10.1 gm/dL (12.0-15.0); LYMPHOCYTES 8.9 %; MCH 32.1 pg (26.0-34.0); MCHC 32.5 g/dL (28.0-37.0); MCV 98.6 fL (80.0-100.0); MONOCYTES 4.6 %; MPV 10.1 fl. (7.2-11.1); NUCLEATED RBCS 0 /100WBC; PLATELET COUNT* 242 thou/uL (150-400); POLYS 85.6 %; RBC 3.14 mil/uL (4.20-5.00)
[2019-10-02 21:52] LABS: ALBUMIN 2.9 g/dL (3.4-5.0); CALCIUM 8.6 mg/dL (8.5-10.1); CREATININE 1.4 mg/dL (0.6-1.3); POTASSIUM 3.8 mmol/L (3.5-5.1); TOTAL BILIRUBIN 0.4 mg/dL (<0.1-1.0)
[2019-10-03 00:34] VITALS: BP 121/63
[2019-10-03 03:54] VITALS: BP 88/32
--- NOTE | 2019-10-03 05:53 | NUR ---
PT IS ABLE TO COMMUNICATE HER NEEDS TO STAFF WITH SOME DIFFICULTY; SHE IS ONLY ORIENTED TO SELF AND IS OFTEN CONFUSED. CURRENT PAIN MEDICTION REGIMEN HAS BEEN ADEQUATE FOR CONTROLLING HER PAIN UP TO THIS TIME. SHE HAS BEEN NPO SINCE MIDNIGHT FOR [facility] CONSULT TODAY. CODE STATUS IS DNR.
[2019-10-03 08:00] VITALS: BP 157/70
[2019-10-03 11:39] VITALS: BP 137/68
--- NOTE | 2019-10-03 12:48 | NUR ---
JAX spoke with DPOA at bedside. Pt is a LTC resident at [facility] and [place]. Pt is [facility] bound, [facility]. Hx of [facility] last year. Per DPOA, plan is for Pt return to [facility] with [facility], hopefully today. JAX contacted [facility] liaison, awaiting time that she can come to assess Pt. Following.
--- NOTE | 2019-10-03 15:02 | NUR ---
Pt discharging back to [facility] today with [facility] hosp[facility]. Ambulance to pickling tank operator and transport at 5pm. Chart copied. DC info faxed. Nurse report number is [phone]
[2019-10-03 15:43] VITALS: BP 137/68
[2019-10-03 15:44] VITALS: BP 153/78
--- NOTE | 2019-10-03 16:24 | NUR ---
PT VSS, SR ON TELE, UNABLE TO ASSESS ORIENTATION, PT NOT SPEAKING, PT HAVING DIFFICULTY STAYING AWAKE, DPOA AND PATIENT DECIDED PATIENT WOULD GO ON HOSPICE AND BACK TO [facility] CARE. HOURLY ROUNDING PERFORMED. PT PICKED UP BY EMS AND TAKEN BY CART, TELE MONITOR AND IV REMOVED WITHOUT COMPLICATION. REPORT CALLED TO GAIL MATHEWS AT LTC FACILITY. CHART AND DC PACKET TAKEN BY EMS.
--- NOTE | 2019-10-05 22:46 | CON ---
[address] [address] CONSULTATION Name: TERESA BUCHANAN Room: [address] IN M.R.#: [id number] Admission: 10/02/19 Attend Phys: Margie Roberts Discharge: 10/03/19 Date of : 36 Report #: [id number] THIS REPORT FOR: //name// CC: Johnie Doyle DICTATED BY: Enedina Mix [facility] Please note at the time of this dictation, patient was seen and physically examined by myself. REASON FOR CONSULTATION: Hematemesis. HISTORY OF PRESENT ILLNESS: This is an 79-year-old female who has a longstanding history of Alzheimer/dementia, which seems to be in more advanced stages. At the time of this dictation all of the information was obtained from the chart and also the patient's DPOA, Hue Sam. Apparently yesterday morning, patient vomited up some coffee-ground looking emesis, did not complain of anything and had not been complaining of anything prior to that. The patient did have an EGD with Dr. Ng last year in June that did show grade D esophagitis, 4 cm hiatal hernia and she had gastritis, but negative for H. pylori. It appears that she has never had a colonoscopy as well. Over the past 8 days and talking with the DPOA, she states that she has not been eating or drinking very much at all. She has had no complaints. At times, she will keep food in her mouth and then several minutes later up to 5 minutes, she will spit it back out or let it run back out. She did state that she was constipated and they did give her an enema several days ago and had a very large bowel movement, she states. She has not had any complaints of anything that she is aware of except for yesterday noticing the coffee-ground emesis. It does appear that she has been taking Protonix 40 mg daily at the long term as well. It is unclear though, however, if she has been taking her medications since she has not been swallowing normally over the last 8 days. Her DPOA is concerned about her ability to swallow and will get an evaluation of this while she is here in the hospital. Lengthy discussion with the DPOA of greater than 30 minutes as to if she is unable to swallow and does not pass her swallowing test. Did discuss a possible feeding tube and felt that that would not be warranted in this patient's case. We will hold off on any endoscopy studies until her evaluation by speech therapy has been performed. ALLERGIES: No known drug allergies. MEDICATIONS: From home include: Zofran, senna, allopurinol, Norvasc, B12, multivitamin, Protonix, Remeron, Tylenol and Ceftin. PAST MEDICAL HISTORY: Dementia. She has had an altered mental status, anemia, [place] [address] CONSULTATION Name: TERESA BUCHANAN Room: [address] IN M..#: [id number] Admission: 10/02/19 Attend Phys: Margie Roberts Discharge: 10/03/19 Date of : 36 Report #: [id number] anorexia. She has had some issues with constipation, hypertension and GERD. PAST SURGICAL HISTORY: Negative. FAMILY HISTORY: Negative. SOCIAL HISTORY: Denies any alcohol, tobacco or illegal drug use. Currently residing in a long-term care facility. REVIEW OF SYSTEMS: Twelve-point review of systems is essentially negative except what is mentioned in the HPI. Neurologic: The patient was unable to give any of her history. PHYSICAL EXAMINATION: VITAL SIGNS: Temperature 36.9, pulse 81, respirations 18, blood pressure 88/32. HEART: Regular rate and rhythm. LUNGS: Diminished, but clear. ABDOMEN: Soft, positive bowel sounds in all 4 quadrants with some slight epigastric tenderness noted to palpation. LABORATORY DATA: Hemoglobin on admission was 11, she is 10.1, white count is 11, platelets 242. BUN on admission was 28, she is 26 today. Creatinine is 1.4, GFR is 36. PT is 10. INR is 1. She was positive for nitrites on her urine. CT showed gallbladder calcification, stones with wall thickening noted that was persistent, esophagus was thickened with wall thickening in the rectum consistent with some constipation. IMPRESSION: 1. Hematemesis that has resolved. 2. Abdominal pain in the epigastric area. 3. Anemia. 4. Abnormal CT showing esophageal wall thickening and rectal wall thickening. 5. Chronic kidney disease. 6. Advanced dementia. PLAN: 1. After greater than 30-minute discussion with DPOA and nursing staff, we will plan on doing a speech therapy evaluation to evaluate her swallowing. 2. We will switch her Protonix 40 mg to IV b.i.d. 3. Dulcolax suppository. 4. Further recommendations to be made once the above has [place] [address] CONSULTATION Name: TERESA BUCHANAN Room: [address] M.R.#: [id number] Admission: 10/02/19 Attend Phys: Margie Roberts Discharge: 10/03/19 Date of : 36 Report #: [id number] Thank you for allowing us to participate in this patient's care. Please do not hesitate to call with any questions in regard to this consult. <ELECTRONICALLY SIGNED> By: Marty Ng DO 10/05/19 2246 0912 [id number] Ng DO /nt
== END 2019-10-03 16:15 | disposition hospice, home (50) | DRG 377 ==
LOC: M.ERS 12:07 → M.2W 14:31 → M.TBA-ER 14:31 → M.ERS 15:00 → M.2W 15:21
PROVIDERS: Family Medicine; ADMIT Internal Medicine
DX: K29.71 Gastritis, unspecified, with bleeding (principal); G93.41 Metabolic encephalopathy; N17.0 Acute kidney failure with tubular necrosis; N39.0 Urinary tract infection, site not specified; E44.0 Moderate protein-calorie malnutrition; K21.0 Gastro-esophageal reflux disease with esophagitis; M10.9 Gout, unspecified; G47.00 Insomnia, unspecified; D64.9 Anemia, unspecified; N18.9 Chronic kidney disease, unspecified; G30.9 Alzheimer's disease, unspecified; F02.80 Dementia in other diseases classified elsewhere, unspecified severity, without behavioral disturbance, psychotic disturbance, mood disturbance, and anxiety; I12.9 Hypertensive chronic kidney disease with stage 1 through stage 4 chronic kidney disease, or unspecified chronic kidney disease; Z68.21 Body mass index [BMI] 21.0-21.9, adult; Z90.49 Acquired absence of other specified parts of digestive tract; Z51.5 Encounter for palliative care